=== PATIENT | male | born 1995 | race Two or more races ===

== ENCOUNTER 2017-08-04 16:20 | Emergency (ER) | END 2017-08-04 19:24 | disposition home or self-care (01) ==

== ENCOUNTER 2018-03-18 22:00 | Emergency (ER) | END 2018-03-19 00:34 | disposition home or self-care (01) ==

== ENCOUNTER 2018-05-07 04:38 | Emergency (ER) | END 2018-05-07 06:18 | disposition home or self-care (01) ==